=== PATIENT | female | born 1980 | race Asian ===

== ENCOUNTER → 2021-07-16 16:06 | Outpatient (CLI) | payer OTHER, SELFPAY ==
--- NOTE | 2021-07-16 16:08 | DI.US.S_ITS ---
PROCEDURE: US OB <= 14 WEEKS FETUS INDICATIONS: INITIAL US FOR DATING AND VIABILITY OUTSIDE/PRIOR DATING DATA: Last menstrual period (LMP): May 13, 2021 LMP-based estimated date of delivery (JOSETTE): February 18, 2022 First dating scan (date and location): July 16, 2021 Estimated date of delivery (JOSETTE) from first dating scan: June 23, 2022 TECHNIQUE: Real-time scanning was performed of the fetus and maternal pelvic organs, with image documentation. Endovaginal scanning was also performed to better visualize the fetus and maternal ovaries. COMPARISON: None. FINDINGS: Embryo: Single intrauterine gestation identified. pole and yolk sac are identified. [place]-rump length measures 1.7 centimeters corresponding to ultrasound estimated gestational age of 8 weeks 1 day. Heart rate: Nondetected. Measurement variability in dating: +/- 4 weeks by LMP, +/- 7 days by mean sac diameter (use before 6 weeks gestation if crown-rump length not able to be measured), +/- 5 days by crown-rump length (up to 8 weeks 6 days gestation), +/- 7 days by crown-rump length (up to 13 weeks 6 days gestation). Maternal organs: Ovaries are sonographically normal. IMPRESSION: Single intrauterine with ultrasound estimated gestational age of 8 weeks 1 day. No heart motion identified concerning for nonviable / demise. Recommend correlation with clinical data, serum beta HCG data and short-term follow-up obstetrical ultrasound. Dictated by: Tayler Vasquez MD, PhD on 07/16/2021 at 17:17 Approved by: Tayler Vasquez MD, PhD on 07/16/2021 at 17:20
== END ==
PROVIDERS: Referring Provider Obstetrics & Gynecology; Visit Provider Obstetrics & Gynecology
DX: Z36.87 Encounter for antenatal screening for uncertain dates (principal); Z3A.08 8 weeks gestation of pregnancy
CPT/HCPCS: 76801; 76817

== ENCOUNTER → 2023-01-20 13:56 | Outpatient (CLI) | payer OTHER, SELFPAY ==
--- NOTE | 2023-01-20 13:58 | DI.US.S_ITS ---
PROCEDURE: US OB <= 14 WEEKS FETUS INDICATIONS: DATES OUTSIDE/PRIOR DATING DATA: Last menstrual period (LMP): 11/27/2022. LMP-based estimated date of delivery (JOSETTE): 09/03/2023. First dating scan (date and location): 01/20/2023. Estimated date of delivery (JOSETTE) from first dating scan: 09/13/2023. The calculations are made using the ultrasound JOSETTE of 09/13/2023. TECHNIQUE: Real-time scanning was performed of the fetus and maternal pelvic organs, with image documentation. Endovaginal scanning was also performed to better visualize the fetus and maternal ovaries. COMPARISON: [facility], US, OB <= 14 WEEKS FETUS, 07/16/2021, 16:34. FINDINGS: Embryo: Not visualized Heart rate: Not seen There is a gestational sac with a mean gestational sac diameter of 1.4 cm, 6 weeks 2 days. There is a small yolk sac. Maternal organs: Ovaries demonstrate a 1.7 cm right corpus luteum.. IMPRESSION: There is an early intrauterine with gestational sac without crown-rump length or heartbeat. It measures 6 weeks 2 days by gestational sac measurement. Recommend serial beta hCGs and consideration of a follow-up ultrasound in 1-2 weeks. We strive to produce accurate, complete, and clear reports of imaging services. To assist us in improving patient care, this report was composed using standard report templates and voice recognition software. Therefore, it may contain abnormal punctuation, insertions and/or omissions. Occasional wrong-word or sound-alike substitutions may occur. Though we review the report and make efforts to correct it, we do recommend that the report be read carefully in proper context to recognize any text inaccuracies. Dictated by: Moreno Franco M.D. on 01/20/2023 at 18:46 Approved by: Moreno Franco M.D. on 01/20/2023 at 18:49
== END ==
PROVIDERS: Referring Provider Obstetrics & Gynecology; Visit Provider Obstetrics & Gynecology
DX: O36.80X0 Pregnancy with inconclusive fetal viability, not applicable or unspecified (principal); Z3A.01 Less than 8 weeks gestation of pregnancy
CPT/HCPCS: 76801; 76817

== ENCOUNTER 2025-04-24 09:26 | Day surgery (SDC) | payer OTHER, SELFPAY ==
--- NOTE | 2025-04-24 11:02 | P.HP_ITS ---
History of Present Illness History of Present Illness Date Patient Seen: 04/24/25 Chief complaint: SDC Narrative: Abdominal symptoms rule out celiac disease with small bowel biopsies FOR[facility], [facility] Medical History Chicken pox (~1985) Missed with demise before 20 completed weeks of gestation Fractured coccyx AMA (advanced maternal age) primigravida 35+ AMA (advanced maternal age) multigravida 35+ SAB (spontaneous ) (~09/2020) Surgical History [place] teeth extracted Family History Father Hypertension Mother Hypotension Grandfather No problems noted. Grandmother Accidental fall Coma Grandfather No problems noted. Grandmother Old age Brother No problems noted. Social History marital status: number of children: 0 household members: spouse lives independently: Yes caregiver/support person: No housing: house pets and animals: Yes (1 Dog) education level: college (Degree in [place] : unknown description here in the [place]) occupational status: employed (childcare) current occupational exposures/hazards: No special camila needs: No travel history: over 6 months ago seatbelt use: always water heater temp set < 120 deg: Yes working smoke detector in home: Yes fire extinguisher in home: Yes carbon monox detector in home: Yes firearms in home: Yes firearms unloaded and locked: No (encouraged to get a safe before the baby is born) do you feel safe at home: Yes (answered w/ on speaker phone) Tobacco: How many years used: 10 quit status: quit date established (Quit 3 years ago (?2017)) second hand exposure: No (Robb vapes) alcohol intake: former (pre- : wine and beer socially 2-3 x/week) substance use type: does not use during the past year weight has: increased > 10 lbs well-balanced diet: about half the time daily servings fruits/ve-4 caffeine: Yes Type(s) of exercise: walking and other (active job w/ children) duration: 15-30 minutes/day Meds Home Medications and Allergies Home Medications ?Medication ?Instructions ?Recorded ?Confirmed ?Type prenat.vits,autumn,bdx-nudc-ubpmx 1 tab PO DAILY 07/09/21 03/23/25 History Allergies Allergy/AdvReac Type Severity Reaction Status Date / Time gluten AdvReac Intermediate Hives Verified 03/23/25 15:07 requiring Benadryl for Rx Exam Narrative Exam Narrative: Oropharynx free of lesions Chest clear to auscultation percussion Cardiac exam reveals no S3 or murmur Assessment & Plan Assessment & Plan narrative: GI symptoms possibly consistent with celiac disease need for EGD and biopsies of small bowel. Risks, benefits, alternatives have been explained. Time-Based Coding :: [TOTAL MINUTES] spent with patient and on the chart (including review of chart, obtaining history, exam, reviewing outside data, placing orders, documenting exam and treatment plan, and counseling patient) on [DATE]. PROFEE Extension Worker Document charge(s): No
--- NOTE | 2025-04-24 11:03 | P.OP.EGD_ITS ---
Operative Date/Time/Diagnoses Date of procedure: 04/24/25 Time of procedure: 11:54 Pre-op diagnosis: See indication and findings Post-op diagnosis: same Procedure & Clinicians Study performed: EGD with small-bowel biopsy Same procedure(s) as scheduled: Yes Indications: GI symptoms possibly consistent with celiac disease need for small-bowel biopsies Anesthesia Type: Other Procedure Notes Procedure in detail: After informed consent was obtained the patient was placed in left lateral decubitus position. The video EGD scope was placed into the oropharynx and with the patient's help swallowed into the esophagus. The esophagus stomach and d uodenal were carefully examined. On withdrawal, retroflexed view the GE junction was performed. The scope was removed. The patient tolerated the procedure well. Blood loss none Complications none Sedation mac Findings 1. Normal EGD biopsies taken to rule out celiac Will be in touch regarding biopsies
[2025-04-24 11:19] VITALS: BP 102/61; PULSE 62; RESP 16; TEMP 36.3; O2SAT 100
[2025-04-24] MEDS: LACTATED RINGERS 1,000 ML 42 ML IV (11:19)
--- NOTE | 2025-04-24 11:55 | PATH_ITS ---
[facility] Accession Number: [id number] No. of containers..01 Tissue . 01 Material submitted: . small bowel - SMALL BOWEL . 01 Diagnosis: SMALL BOWEL, BIOPSY: Histologically unremarkable small bowel mucosa. Negative for villous blunting and intraepithelial lymphocytosis. MRV 05/01/2025 1620 Local . 01 Electronically signed: . Lori Flores DO, Pathologist NPI- [id number] . 01 Gross description: . SMALL BOWEL: Received in formalin is 1 fragment(s) of dawkins, soft tissue measuring 0.5 x 0.2 x 0.2 cm submitted entirely in 1 cassette(s) /YEYO 04/28/2025 1815 Local . 01 Pathologist provided ICD-10: R10.13 . 01 CPT . 422852 Specimen Comment: A courtesy copy of this report has been sent to [phone] Performed at: [address] [id number] MD Arnel Arias MD Phone: [phone]
[2025-04-24 11:57] VITALS: BP 101/55; PULSE 65; RESP 14; TEMP 36.5; O2SAT 100
[2025-04-24 12:03] VITALS: BP 115/62; PULSE 61; RESP 12; O2SAT 100
[2025-04-24 12:07] VITALS: BP 108/61; PULSE 62; RESP 13; O2SAT 100
[2025-04-24 12:18] VITALS: BP 107/62; PULSE 60; RESP 12; O2SAT 100
== END 2025-04-24 12:20 | disposition home or self-care (01) ==
PROVIDERS: Referring Provider Internal Medicine Gastroenterology; Visit Provider Internal Medicine Gastroenterology
PROC: 0DJ08ZZ Inspection of Upper Intestinal Tract, Via Natural or Artificial Opening Endoscopic (ICD-10-PCS; CPT 43239; principal; 2025-04-24 11:00)
DX: R10.9 Unspecified abdominal pain (principal); R11.0 Nausea
CPT/HCPCS: 43239; J2704